=== PATIENT | female | born 2000 | race African-American/Black ===

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

== ENCOUNTER 2019-08-20 04:26 | Emergency (ER) | payer MEDICAID, SELFPAY ==
[2019-08-20 05:10] LABS: INR-International Normal Ratio 1.1; PTT 26.4 SEC (22.9-36.1); Prothrombin Time 14.3 SEC (12.0-14.7)
[2019-08-20 05:17] LABS: ALT (SGPT) 20 U/L (8-55); AST (SGOT) 16 U/L (5-34); Albumin 4.4 g/dL (3.5-5.0); Alcohol Less than 10 mg/dL (Less than 10); Alkaline Phosphatase 82 U/L (40-100); Anion Gap 16 mmol/L (10-20); BUN (Urea Nitrogen) 9 mg/dL (7.0-18.7); Bilirubin, Total 0.5 mg/dL (0.2-1.2); Calc. Creatinine Clearance 0 mL/min (70-130); Calcium 9.1 mg/dL (7.8-10.44); Carbon Dioxide 22 mmol/L (22-29); Chloride 106 mmol/L (98-107); Estimated GFR-MDRD Greater than 90; Globulin 3.1 g/dL (2.4-3.5); Glucose 104 mg/dL (70-105); Potassium 3.8 mmol/L (3.5-5.1); Protein, Total 7.5 g/dL (6.0-8.3); Sodium 140 mmol/L (136-145)
[2019-08-20 05:19] LABS: Eosinophils 2 % (0-10); Lymphocytes 30 % (28-48); MDiff Complete? YES; Mean Corpuscular HGB CONC 32.8 g/dL (32.0-36.0); Mean Corpuscular Hemoglobin 28.7 pg (25.0-35.0); Mean Corpuscular Volume 87.6 fL (78.0-98.0); Mean Platelet Volume 7.8 fL (7.4-10.4); Monocytes 6 % (0-4); Neutrophil 58 % (31-61); Platelet Count 264 thou/uL (130-400); Platelet Morphology Comment Appears Adequate; RBC Distribution Width 11.2 % (11.5-14.5); RBC Morphology Normal; Reactive Lymphocytes 4 % (0-10); Red Blood Cell (RBC) Count 4.89 mill/uL (4.00-5.20); White Blood Cell (WBC) Count 8.2 thou/uL (4.8-10.8)
[2019-08-20 05:21] LABS: BHCG - Serum Negative (NEGATIVE); Pregs Control Bar Appear? YES (CONTROL BAR)
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
== END 2019-08-20 06:00 | disposition short-term general hospital (02) ==
LOC: NAV ERS 04:26
DX: S31.819A Unspecified open wound of right buttock, initial encounter (principal); S81.802A Unspecified open wound, left lower leg, initial encounter; S81.002A Unspecified open wound, left knee, initial encounter; W34.00XA Accidental discharge from unspecified firearms or gun, initial encounter
CPT/HCPCS: 71045; 72170; 74018; 80053; 80307; 84703; 85025; 85610; 85730; 94760

== ENCOUNTER 2019-09-06 08:16 | Emergency (ER) | payer SELFPAY | END 2019-09-06 09:09 | disposition home or self-care (01) | LOC: NAV ERS 08:16 | DX: S81.801A Unspecified open wound, right lower leg, initial encounter (principal); M79.605 Pain in left leg; W34.00XA Accidental discharge from unspecified firearms or gun, initial encounter | CPT/HCPCS: 99283 ==

== ENCOUNTER 2019-12-24 03:20 | Emergency (ER) | payer OTHER, SELFPAY ==
[2019-12-25 12:00] LABS: SARS-CoV-2 MS2 Positive; SARS-CoV-2 N Gene Positive; SARS-CoV-2 S Gene Positive; SARS-CoV-2 orf1ab Positive
== END 2019-12-24 04:18 | disposition home or self-care (01) ==
LOC: NAV ERS 03:20
DX: U07.1 COVID-19 (principal)
CPT/HCPCS: 87635; U0003

== ENCOUNTER 2020-02-27 12:06 | Emergency (ER) | payer SELFPAY | END 2020-02-27 12:22 | disposition home or self-care (01) | LOC: NAV ERS 12:06 | DX: M25.562 Pain in left knee (principal) | CPT/HCPCS: 99281 ==

== ENCOUNTER 2020-08-23 00:38 | Emergency (ER) | payer OTHER, SELFPAY ==
[2020-08-23 00:59] LABS: Bilirubin Negative (Negative); Blood, Urine Large (Negative); Clarity Cloudy (Clear); Glucose, Urine (Dipstick) Negative (Negative); Ketone, Urine Negative (Negative); Leukocyte Negative (Negative); Nitrite Negative (Negative); Protein, Urine (Dipstick) > or equal to 300 mg/dL (Neg-Trace); pH, Urine 6.5 (5.0-9.0)
[2020-08-23 01:01] LABS: Bacteria/HPF None Seen HPF (None Seen); RBC/HPF 21-50 HPF (0-3); Specific Gravity, Urine 1.024 (1.002-1.036); WBC/HPF 0-3 HPF (0-3)
[2020-08-23 01:09] LABS: Pregu Control Background? CLEAR/WHITE (CLR/WHITE); Pregu Control Bar Appear? YES (CONTROL BAR); Specific Gravity 1.024 (1.002-1.036)
[2020-08-23 01:10] LABS: Pregnancy Test - Urine (BHCG) Negative (Negative)
== END 2020-08-23 01:20 | disposition home or self-care (01) ==
LOC: NAV ERS 00:38
DX: R35.0 Frequency of micturition (principal); R31.9 Hematuria, unspecified
CPT/HCPCS: 81003; 81015; 81025; 99283

== ENCOUNTER 2020-08-25 15:04 | Emergency (ER) | payer OTHER, SELFPAY ==
[2020-08-25 15:37] LABS: Bacteria/HPF Rare-Few HPF (None Seen); Bilirubin Negative (Negative); Blood, Urine Large (Negative); Clarity Cloudy (Clear); Glucose, Urine (Dipstick) Negative (Negative); Ketone, Urine Negative (Negative); Leukocyte Trace (Negative); Nitrite Negative (Negative); Protein, Urine (Dipstick) > or equal to 300 mg/dL (Neg-Trace); RBC/HPF Greater than 50 HPF (0-3); Specific Gravity, Urine Greater/Equal 1.030 (1.005-1.030); pH, Urine 6.5 (5.0-9.0)
== END 2020-08-25 15:49 | disposition home or self-care (01) ==
LOC: NAV ERS 15:04
DX: N39.0 Urinary tract infection, site not specified (principal)
CPT/HCPCS: 81003; 81015; 99283

== ENCOUNTER 2020-12-21 21:05 | Emergency (ER) | payer OTHER, SELFPAY ==
[2020-12-21] MEDS ORDERED: Loperamide HCl 2 MG CAP ONE (22:17)
[2020-12-21 22:35] LABS: Bilirubin Negative (Negative); Blood, Urine Trace (Negative); Clarity Clear (Clear); Glucose, Urine (Dipstick) Negative (Negative); Ketone, Urine Negative (Negative); Leukocyte Large (Negative); Nitrite Negative (Negative); Protein, Urine (Dipstick) Negative (Neg-Trace); pH, Urine 8.5 (5.0-9.0)
[2020-12-21 22:47] LABS: Bacteria/HPF Rare-Few HPF (None Seen); RBC/HPF 0-3 HPF (0-3)
== END 2020-12-21 22:26 | disposition home or self-care (01) ==
LOC: NAV ERS 21:05
DX: O99.891 Other specified diseases and conditions complicating pregnancy (principal); R19.7 Diarrhea, unspecified; Z3A.20 20 weeks gestation of pregnancy
CPT/HCPCS: 81003; 81015; 99284

== ENCOUNTER 2021-02-17 12:17 | Emergency (ER) | payer OTHER | END 2021-02-17 13:18 | disposition home or self-care (01) | LOC: NAV ERS 12:17 | DX: O36.8120 Decreased fetal movements, second trimester, not applicable or unspecified (principal); Z3A.27 27 weeks gestation of pregnancy | CPT/HCPCS: 99283 ==

== ENCOUNTER 2021-04-15 21:54 | Emergency (ER) | payer OTHER | END 2021-04-15 23:13 | disposition home or self-care (01) | LOC: NAV ERS 21:54 | DX: O99.891 Other specified diseases and conditions complicating pregnancy (principal); R10.30 Lower abdominal pain, unspecified; Z3A.35 35 weeks gestation of pregnancy; Z79.899 Other long term (current) drug therapy ==

== ENCOUNTER 2021-07-07 21:52 | Emergency (ER) | payer OTHER ==
[2021-07-07 22:35] LABS: Bilirubin Negative (Negative); Blood, Urine Negative (Negative); Clarity Clear (Clear); Glucose, Urine (Dipstick) Negative (Negative); Ketone, Urine Negative (Negative); Leukocyte Negative (Negative); Nitrite Negative (Negative); Protein, Urine (Dipstick) 30 mg/dL (Neg-Trace); pH, Urine 8.5 (5.0-9.0)
[2021-07-07 22:36] LABS: Pregnancy Test - Urine (BHCG) Negative (Negative); Pregu Control Background? CLEAR/WHITE (CLR/WHITE); Pregu Control Bar Appear? YES (CONTROL BAR)
[2021-07-07 22:40] LABS: Bacteria/HPF None Seen HPF (None Seen); RBC/HPF None Seen HPF (0-3); Squamous Epithelial 0-3 HPF (0-3); WBC/HPF None Seen HPF (0-3)
[2021-07-10 21:19] LABS: Chlamydia by PCR DETECTED (NotDetected); GC by PCR Not Detected (NotDetected)
== END 2021-07-07 23:36 | disposition home or self-care (01) ==
LOC: NAV ERS 21:52
DX: R10.31 Right lower quadrant pain (principal)
CPT/HCPCS: 81003; 81015; 81025; 87480; 87491; 87510; 87591; 87660; 99284

== ENCOUNTER 2021-10-27 18:13 | Emergency (ER) | payer MEDICAID, SELFPAY ==
[2021-10-27] MEDS ORDERED: Loperamide HCl 2 MG CAP ONE (18:52)
== END 2021-10-27 18:55 | disposition home or self-care (01) ==
LOC: NAV ERS 18:13
DX: R19.7 Diarrhea, unspecified (principal)
CPT/HCPCS: 99283

== ENCOUNTER 2024-07-02 10:28 | Emergency (ER) | payer SELFPAY ==
[2024-07-02] MEDS ORDERED: Acetaminophen 500 MG TAB ONE (10:56)
[2024-07-02] MEDS ORDERED: Sodium Chloride 0.9% 1,000 ML ONE (10:56)
[2024-07-02 11:20] LABS: #Basophils 0.1 thou/uL (0.0-0.2); #Lymphocytes 1.4 thou/uL (1.20-3.40); #Monocytes 0.5 thou/uL (0.11-0.59); #Neutrophils 7.2 thou/uL (1.40-6.50); %Eosinophils 0.3 % (0.0-10.0); %Lymphocytes 15.4 % (21.0-51.0); %Monocytes 5.3 % (0.0-10.0); Hematocrit 41.7 % (36.0-47.0); Hemoglobin 13.5 g/dL (12.0-16.0); Mean Corpuscular HGB CONC 32.3 g/dL (32.0-36.0); Mean Corpuscular Hemoglobin 27.6 pg (27.0-31.0); Mean Corpuscular Volume 85.4 fl (78.0-98.0); Mean Platelet Volume 7.6 fL (7.4-10.4); Platelet Count 316 10x3/uL (130-400); RBC Distribution Width 10.9 % (11.5-14.5); Red Blood Cell (RBC) Count 4.89 mill/uL (4.20-5.40); White Blood Cell (WBC) Count 9.3 10x3/uL (4.8-10.8)
[2024-07-02 11:50] LABS: ALT (SGPT) 15 U/L (8-55); AST (SGOT) 12 U/L (5-34); Albumin 3.9 g/dL (3.5-5.0); Alkaline Phosphatase 63 U/L (40-110); Anion Gap 12 mmol/L (10-20); BUN (Urea Nitrogen) 7 mg/dL (7.0-18.7); Bilirubin, Total 0.5 mg/dL (0.2-1.2); Calc. Creatinine Clearance 0 mL/min (70-130); Calcium 9.1 mg/dL (7.8-10.44); Carbon Dioxide 21 mmol/L (22-29); Chloride 106 mmol/L (98-107); Estimated GFR 108; Glucose 117 mg/dL (70-105); Lipase 14 U/L (8-78); Potassium 4.3 mmol/L (3.5-5.1); Protein, Total 6.9 g/dL (6.0-8.3); Sodium 135 mmol/L (136-145)
[2024-07-02 12:18] LABS: Bilirubin Negative (Negative); Blood, Urine Trace (Negative); Glucose, Urine (Dipstick) Negative (Negative); Ketone, Urine Negative (Negative); Leukocyte Small (Negative); Nitrite Negative (Negative); Protein, Urine (Dipstick) Negative (Neg-Trace); pH, Urine 8.5 (5.0-9.0)
[2024-07-02 12:20] LABS: CAUTI Indications for Culture Pelvic or flank pain; Clarity Hazy (Clear)
[2024-07-02 12:21] LABS: Bacteria/HPF 1+ HPF (None Seen)
[2024-07-02 12:22] LABS: Urine Culture Reflex No No
== END 2024-07-02 12:36 | disposition home or self-care (01) ==
LOC: NAV ERS 10:28
DX: O99.891 Other specified diseases and conditions complicating pregnancy (principal); R10.30 Lower abdominal pain, unspecified; Z3A.08 8 weeks gestation of pregnancy
CPT/HCPCS: 80053; 81001; 83690; 84702; 85025; 99284; J7030